=== PATIENT | female | born 1950 | race Caucasian/White ===

== ENCOUNTER 2017-03-14 09:15 | Emergency (ER) | payer OTHER ==
[~2017-03-14] VITALS: Ht 157.5 cm; Wt 85.7 kg
[~2017-03-14 09:15] MED LIST: ACET325T33 PO; IBUP800T25 PO; PSEU30TA38 PO
[2017-03-14 09:23] VITALS: Ht 157.5 cm; Wt 85.7 kg
[2017-03-14] MEDS ORDERED: PRED20TA PO (09:49)
[2017-03-14] MEDS ORDERED: BEN25 PO (09:49)
[2017-03-14] MEDS ORDERED: FAMO-96 PO (09:49)
--- NOTE | 2017-03-14 09:59 | ERD ---
ER Documentation Chief Complaint Chief Complaint started with the body rash itcjing since yesterday still experiencing sympt HPI 66 year old female comes in with a generalized body rash with itching that started yesterday. The patient states that she has not tried any new foods, medications, lotions, creams or detergents, she has been staying at someone's home with several different plants in the home which she is not used to. No pets in the family home. She has not had any chest pain, shortness breath, facial swelling or lip swelling. Patient denies chest pain, shortness of breath , dizziness. ROS All systems reviewed and are negative except as per history of present illness. Medications Home Meds Active Scripts Famotidine* (Pepcid*) 20 Mg Tablet, 20 MG PO BID for 4 Days, TAB Prov:JOAQUIM MIRANDA PA-C 03/14/17 Diphenhydramine Hcl* (Benadryl*) 25 Mg Cap, 25 MG PO Q6, #30 CAP Prov:JOAQUIM MIRANDA PA-C 03/14/17 Prednisone* (Prednisone*) 20 Mg Tab, 40 MG PO DAILY for 4 Days, TAB Prov:JOAQUIM MIRANDA PA-C 03/14/17 Pseudoephedrine Hcl* (Pseudoephedrine Hcl*) 30 Mg Tablet, 30 MG PO Q6 Y for CONGESTION, #30 TAB Prov:FELISA LOZOYA PA-C 03/30/15 Acetaminophen* (Tylenol*) 325 Mg Tablet, 2 TAB PO Q8 Y for PAIN AND OR ELEVATED TEMP, #20 TAB Prov:FELISA LOZOYA PA-C 03/30/15 Ibuprofen* (Motrin*) 800 Mg Tab, 800 MG PO Q6, #30 TAB Prov:FELISA LOZOYA PA-C 03/30/15 Allergies Allergies: Coded Allergies: No Known Allergy (Unverified , 03/30/15) PMhx/Soc History of Surgery: Yes (csect x1, l. breast lumpectomy (+CA treated), tubal ligation) Hx Cardiac Disorders: Yes (htn) Hx Miscellaneous Medical Probl: Yes (breast ca (early stage, treated)) Hx Alcohol Use: No Hx Substance Use: No Hx Tobacco Use: No Smoking Status: Never smoker Physical Exam Vitals Vital Signs Date Time Temp Pulse Resp B/P Pulse Ox O2 Delivery O2 Flow Rate FiO2 03/14/17 09:23 98.5 70 18 133/64 96 Physical Exam General: Well-developed, well-nourished. The patient appears in no acute distress. HEENT: Head is normocephalic, atraumatic. No scleral icterus. Patient's oropharynx is clear, there is no angioedema or facial swelling. Neck: Supple. Nontender. Lungs: Clear to auscultation. Normal air movement. Heart: Regular rate and rhythm. S1 and S2 are normal. No murmurs, gallops, or rubs. Abdomen: Soft, nontender, nondistended. Bowel sounds are normoactive. Extremities: No clubbing or cyanosis. Normal pulses. Moving extremities x 4. No weakness. Neurologic: Alert and oriented 3. No focal deficits. Skin: Scattered hives, no petechiae, no purpura. Results 24 hrs Current Medications Medications (Trade) Dose Ordered Sig/Harley Route PRN Reason Start Time Stop Time Status Last Admin Dose Admin Prednisone (Prednisone) 40 mg ONCE ONCE PO 03/14/17 10:00 03/14/17 10:01 03/14/17 09:52 Diphenhydramine HCl (Benadryl) 25 mg ONCE ONCE PO 03/14/17 10:00 03/14/17 10:01 03/14/17 09:52 Procedures/MDM ED COURSE: Patient was given prednisone 40 mg, Benadryl 25 mg. MEDICAL DECISION MAKIN-year-old female comes in with mild allergic reaction, she has scattered hives , and itching but no angioedema, no signs of respiratory distress the patient appears to be stable. She was given a dose of prednisone, management as per to be discharged home at this time. Patient's allergic symptoms have stabilized while they have been evaluated in the department without evidence of persistent systemic reaction. Patient is healthy and capable of treating and responding to rebound reactions. Patient appropriate for outpatient allergy work up and treatment. Patient's blood pressure was elevated (>120/80) but appears stable without evidence of hypertension emergency or urgency. The patient was counseled about the risks of hypertension and urged to pursue outpatient monitoring and therapy within a week with their primary care physician. Departure Diagnosis: Primary Impression: Allergic reaction Condition: Good Patient Instructions: Allergic Reaction, Other (General) JOAQUIM MIRANDA PA-C Mar 14, 2017 09:59
[2017-03-14] MEDS ORDERED: predniSONE 20 MG TAB PO ONE (10:00)
[2017-03-14] MEDS ORDERED: DIPHENHYDRAMINE 25 MG CAP PO ONE (10:00)
== END 2017-03-14 10:00 | disposition home or self-care (01) ==
LOC: FTE 09:15
DX: L50.0 Allergic urticaria (principal); I10 Essential (primary) hypertension; Z85.3 Personal history of malignant neoplasm of breast
CPT/HCPCS: J7512; Z7502; Z7610; 99283

== ENCOUNTER 2017-03-24 14:30 | Emergency (ER) | payer OTHER ==
[~2017-03-24] VITALS: Ht 157.5 cm; Wt 86.2 kg
[~2017-03-24 14:30] MED LIST changes: +BEN25 PO; +FAMO-96 PO; +PRED20TA PO
[2017-03-24 14:33] VITALS: Ht 157.5 cm; Wt 86.2 kg
[2017-03-24] MEDS ORDERED: KETOROLAC 60 MG INJ IM STA (15:22)
--- NOTE | 2017-03-24 17:47 | RADRPT ---
PROCEDURE: CT Brain without contrast. CLINICAL INDICATION: Headache. TECHNIQUE: A CT of the brain without contrast was performed utilizing axial sections from the skul l base through the vertex. The patient was scanned without intravenous contrast enhancement. Sagitta l and coronal reformatted images were obtained using the data from the axial images. Total exam DLP is 720.23 mGy-cm. CTDIvol is 43.86 mGy. One or more of the following dose reduction techniques we re used: Automated exposure control, adjustment of the mA and/or kV according to patient size, use o f iterative reconstruction technique. DICOM images are available. COMPARISON: None available FINDINGS: There is normal sexton-white matter differentiation. The ventricles and cisterns are normal. There is no intracranial hemorrhage or space-occupying lesion. There is no skull fracture or lytic lesion. IMPRESSION: 1. Normal noncontrast CT scan of the brain. 2. No intracranial hemorrhage. RPTAT: QQ .Galileo Silva MD, MD Date Time Electronically viewed and signed by .Galileo Silva MD, on 03/24/2017 16:52 .R/
[2017-03-24] MEDS ORDERED: ASPI-826 PO (18:06)
[2017-03-24 18:14] VITALS: BP 128/66; PULSE 74; RESP 18; TEMP 98.2
--- NOTE | 2017-03-24 23:48 | ERD ---
ER Documentation Chief Complaint Chief Complaint HAS WILSON STARTED 2 DAYS AGO HPI 66-year-old female complaining of headaches 2 days. Patient stated that the pain is located in the back of her head and sharp. Pain onset upon awake 2 days ago. She has been taking [id number] Tylenol and Advil at home without relief. Last dose was 3 hours ago. Patient denies blurry vision, photophobia, nausea, vomiting, dizziness, or fever. Patient has history of breast cancer and ovarian cancer, her last chemo for ovarian cancer was 1 year ago. ROS All systems reviewed and are negative except as per history of present illness. Medications Home Meds Active Scripts Aspirin/Acetaminophen/Caffeine (Excedrin Extra Strength Caplet) 1 Each Tablet, 1 EACH PO Q6 Y for HEADACHE, #20 TAB Prov:ASHLEY SOLITARIO JACKSPOOLER 03/24/17 PMhx/Soc History of Surgery: No Anesthesia Reaction: No Hx Neurological Disorder: No Hx Respiratory Disorders: No Hx Cardiac Disorders: Yes (CHOLESETEROL, HYPERTENSION ) Hx Psychiatric Problems: No Hx Miscellaneous Medical Probl: Yes (BREAST AND UTERUS CANCER ) Hx Alcohol Use: No Hx Substance Use: No Hx Tobacco Use: No Physical Exam Vitals Vital Signs Date Time Temp Pulse Resp B/P Pulse Ox O2 Delivery O2 Flow Rate FiO2 03/24/17 18:14 98.2 74 18 128/66 98 Room Air 03/24/17 14:33 98.0 75 18 125/60 98 Physical Exam General: Well-developed, well-nourished, conscious and coherent, in no distress Skin: Warm and dry without rash, good texture and turgor Head: Normocephalic without evidence of trauma Eyes: Sclera and conjunctivae normal; pupils equal, round, and reactive to light; extraocular movements are intact Neck: Supple without meningismus or adenopathy. Carotids are equal. Trachea midline. No bruits or JVD. Bilateral upper trapezius muscle tightness and tenderness. Chest: Normal AP diameter. Good expansion without retractions. Nontender. Lungs are clear to auscultate bilaterally with good tidal volume Heart: Regular rate and rhythm. No murmur, rub, or gallops heard Extremities: Full range of motion. Good strength bilaterally. No clubbing, cyanosis, or edema. Peripheral pulses are intact. Sensation intact Neuro: Alert and oriented 4; GCS 15. Cranial nerves II - XII intact. Motor sensory exam nonfocal. Moves all extremities. Deep tendon reflexes 2+ in all extremities. Speech clear. No pronator drift. Gait steady. Results 24 hrs Current Medications Medications (Trade) Dose Ordered Sig/Harley Route PRN Reason Start Time Stop Time Status Last Admin Dose Admin Ketorolac Tromethamine (Toradol) 60 mg ONCE STAT IM 03/24/17 15:22 03/24/17 15:23 DC 03/24/17 15:32 PROCEDURE: CT Brain without contrast. CLINICAL INDICATION: Headache. TECHNIQUE: A CT of the brain without contrast was performed utilizing axial sections from the skull base through the vertex. The patient was scanned without intravenous contrast enhancement. Sagittal and coronal reformatted images were obtained using the data from the axial images. Total exam DLP is 720.23 mGy-cm. CTDIvol is 43.86 mGy. One or more of the following dose reduction techniques were used: Automated exposure control, adjustment of the mA and/or kV according to patient size, use of iterative reconstruction technique. DICOM images are available. COMPARISON: None available FINDINGS: There is normal sexton-white matter differentiation. The ventricles and cisterns are normal. There is no intracranial hemorrhage or space-occupying lesion. There is no skull fracture or lytic lesion. IMPRESSION: 1. Normal noncontrast CT scan of the brain. 2. No intracranial hemorrhage. RPTAT: QQ .Galileo Silva MD, Date Time Electronically viewed and signed by .Galileo Silva MD, on 03/24/2017 16:52 .R/ CC: ASHLEY SOLITARIO JACKSPOOLER Procedures/MDM Well-appearing 66-year-old female presented ED with headache 2 days. Differentials include but not limited to migraine, cluster headache, tension headache, sinus or dental infection, TMJ syndrome, pseudotumor cerebri, meningitis, encephalitis, giant cell arteritis, glaucoma, subarachnoid hemorrhage, subdural or epidural hematoma, intracranial bleeding or tumor. Because the patient is advanced age, and her recent cancer history, CT head without IV contrast was obtained. CT head negative for intracranial processes. Toradol given to the patient in the ED for pain, patient reports relief of headache after Toradol. Likely patient's headache is tension type. Patient appears well, stable for discharge and outpatient management. Medical decision making shared with patient and family. Education provided to patient and family. Patient and family expressed understanding of the plan. Medications on discharge: Excedrin. Follow-up: Primary care provider in 2-3 days or return to ED if worse. Disclaimer: Inadvertent spelling and grammatical errors are likely due to EHR/ dictation software use and do not reflect on the overall quality of patient care. Also, please note that the electronic time recorded on this note does not necessarily reflect the actual time of the patient encounter. Departure Diagnosis: Primary Impression: Headache Condition: Stable Patient Instructions: Self-Care for Headaches Referrals: DOCTOR,NOT ON STAFF (PCP) [facility] Usted se wilson hecho un examen mdico de control que le indica que no est en ellen condicin que requiera tratamiento urgente en el Departamento de Emergencia. Un estudio ms profundo y el tratamiento de arvizu condicin pueden esperar sin ningn riesgo hasta que usted sea atendida/o en el consultorio de arvizu mdico o ellen cl heaven. Es responsabilidad suya arreglar ellen chayo para el seguimiento del west. MANEJO DE CONDICIONES NO URGENTES EN EL FUTURO 1) Si usted tiene un mdico de atencin primaria: Usted debera llamar a arvizu mdico de atencin primaria antes de venir al departamento de emergencia. Despus de las horas de consultorio, arvizu doctor o arvizu asociado/a est disponible por telfono. El mdico o enfermero de poly en el servicio telefnico puede asesorarle por franky medio para atender el problema, o west contrario se puede programar ellen chayo. 2) Si usted no tiene un mdico de atencin primaria: Llame al mdico o clnica de referencia que aparece abajo jeff las horas de consultorio para hacer ellen chayo para que le vean. CLINICAS: [facility] [phone] [facility] [phone] [facility] [phone] [place] [address] [phone] [place] [address] [phone] [facility]. [phone] [address] Additional Instructions: Llame al doctor MAANA y yana ellen CHAYO PARA DENTRO DE 2-3 BECKETT.Dgale a la secretaria que nosotros le instruimos hacer esta chayo.Avise o llame si arvizu condicin se empeora antes de la chayo. Regresa aqui si peor o no mejor. ASHLEY SOLITARIO. PREM Mar 24, 2017 23:48
== END 2017-03-24 18:14 | disposition home or self-care (01) ==
LOC: MERGE 14:30 → FTE 14:30
DX: R51 Headache (principal)
CPT/HCPCS: 70450; 96372; J1885; Z7502

== ENCOUNTER 2017-06-11 10:54 | Emergency (ER) | END 2017-06-11 13:37 | disposition home or self-care (01) ==

== ENCOUNTER 2018-11-14 13:44 | Emergency (ER) | payer MEDICARE, OTHER ==
[~2018-11-14] VITALS: Ht 157.5 cm; Wt 85.7 kg
[~2018-11-14 13:44] MED LIST changes: +ASPI-826 PO; +AZIT250T PO; +CEPH-443 PO; +D-ME473S2 PO; -IBUP800T25 PO; +IBUP800T48 PO
[2018-11-14 13:48] VITALS: BP 137/65; PULSE 66; RESP 17; Ht 157.5 cm; Wt 85.7 kg
--- NOTE | 2018-11-14 14:25 | ERD ---
ER Documentation Chief Complaint Chief Complaint PAIN WITH URINATION, ONSET TODAY, NO HEMATURIA, NO N/V, NO FEVER HPI 68-year-old female who presents to the emergency room complaining of ap proximately less than 12 hours of dysuria urgency and frequency. The patient describes a remote history of kidney stones but none presently. She denies any flank pain or colicky pain or fevers or chills. Translation services were utilized during this patient's encounter Language: Ethiopian Source: In person ROS All systems reviewed and are negative except as per history of present illness. Medications Home Meds Active Scripts Cephalexin* (Keflex*) 500 Mg Capsule, 500 MG PO BID for 7 Days, CAP Prov:INDY STEELE MD 11/14/18 Dextromethorphan Hb-Promethazine Hcl* (Promethazine DM* Syrup) 473 Ml Syrup, 10 ML PO Q6 PRN for COUGH, #120 ML Prov:ROSA PAUL MD 06/11/17 Azithromycin* (Zithromax*) 250 Mg Tablet, 250 MG PO .ZPACK DIRECTED, #6 TAB TAKE 500 MG (2 TABS) THE FIRST DAY THEN 250 MG (1 TAB) DAYS 2-5 Prov:ROSA PAUL MD 06/11/17 Aspirin/Acetaminophen/Caffeine (Excedrin Extra Strength Caplet) 1 Each Tablet, 1 EACH PO Q6 PRN for HEADACHE, #20 TAB Prov:ASHLEY SOLITARIO NP 03/24/17 Famotidine* (Pepcid*) 20 Mg Tablet, 20 MG PO BID for 4 Days, TAB Prov:JOAQUIM MIRANDA PA-C 03/14/17 Diphenhydramine Hcl* (Benadryl*) 25 Mg Cap, 25 MG PO Q6, #30 CAP Prov:JOAQUIM MIRANDA PA-C 03/14/17 Prednisone* (Prednisone*) 20 Mg Tab, 40 MG PO DAILY for 4 Days, TAB Prov:JOAQUIM MIRANDA PA-C 03/14/17 Pseudoephedrine Hcl* (Pseudoephedrine Hcl*) 30 Mg Tablet, 30 MG PO Q6 PRN for CONGESTION, #30 TAB Prov:FELIAS LOZOYA PA-C 03/30/15 Acetaminophen* (Tylenol*) 325 Mg Tablet, 2 TAB PO Q8 PRN for PAIN AND OR ELEVATED TEMP, #20 TAB Prov:FELISA LOZOYA PA-C 03/30/15 Ibuprofen* (Motrin*) 800 Mg Tab, 800 MG PO Q6, #30 TAB Prov:FELISA LOZOYA PA-C 03/30/15 Allergies Allergies: Coded Allergies: No Known Allergy (Unverified , 06/11/17) PMhx/Soc History of Surgery: No Anesthesia Reaction: No Hx Neurological Disorder: No Hx Respiratory Disorders: No Hx Cardiac Disorders: Yes (CHOLESETEROL, HYPERTENSION ) Hx Psychiatric Problems: No Hx Miscellaneous Medical Probl: Yes (BREAST AND UTERUS CANCER ) Hx Alcohol Use: No Hx Substance Use: No Hx Tobacco Use: No Smoking Status: Never smoker FmHx Family History: No diabetes Physical Exam Vitals Vital Signs Date Temp Pulse Resp B/P (MAP) Pulse Ox O2 O2 Flow FiO2 Time Delivery Rate 11/14/18 98.8 66 17 137/65 98 13:48 (89) Physical Exam General: Well developed, well nourished, no acute distress Head: Normocephalic, atraumatic. Eyes: EOM intact ENT: Moist mucous membranes Neck: Full ROM Respiratory: No respiratory distress Cardiovascular: Well perfused distally Abdominal: Nondistended nontender : Deferred MSK: No edema, no unilateral swelling, 5/5 strength Neurologic: Alert and oriented, moving all extremities, normal speech, steady gait Skin: No rash Psych: Normal mood Procedures/MDM Clinical exam is consistent with uncomplicated urinary tract infection. No evidence of pyelonephritis. No evidence of concurrent ureteral stone. Empiric therapy would be reasonable. No indication to check urinalysis or urine dip. The patient does not have an identifiable emergent medical condition that warrants inpatient hospitalization at this time. The patient is deemed safe for discharge with outpatient follow-up. We discussed follow up with the patient's primary care doctor within 24 to 48 hours as needed. We also discussed return to the emergency room for worsening symptoms or worsening condition. Outpatient referral: None required Discharge Medications: Keflex Departure Diagnosis: Primary Impression: UTI (urinary tract infection) Urinary tract infection type: acute cystitis Hematuria presence: without hematuria Qualified Codes: N30.00 - Acute cystitis without hematuria Condition: Stable Patient Instructions: Understanding Urinary Tract Infections (UTIs) Referrals: [facility]) Usted se villanueva hecho un examen mdico de control que le indica que no est en ellen condicin que requiera tratamiento urgente en el Departamento de Emergencia. Un estudio ms profundo y el tratamiento de arvizu condicin pueden esperar sin ningn riesgo hasta que usted sea atendida/o en el consultorio de arvizu mdico o ellen clnica. Es responsabilidad suya arreglar ellen chayo para el seguimiento del west. MANEJO DE CONDICIONES NO URGENTES EN EL FUTURO 1) Si usted tiene un mdico de atencin primaria: Usted debera llamar a arvizu mdico de atencin primaria antes de venir al departamento de emergencia. Despus de las horas de consultorio, arvizu doctor o arvizu asociado/a est disponible por telfono. El mdico o enfermero de poly en el servicio telefnico puede asesorarle por franky medio para atender el problema, o west contrario se puede programar ellen chayo. 2) Si usted no tiene un mdico de atencin primaria: Llame al mdico o clnica de referencia que aparece abajo jeff las horas de consultorio para hacer ellen chayo para que le vean. CLINICAS: [facility] [phone] [address] [facility] [phone] [address] [facility] [phone] [address] [facility]. [facility] [phone] [address] [place] [phone] [facility]. [phone] [address] [facility] [address] [facility] () Usted se villanueva hecho un examen mdico de control que le indica que no est en ellen condicin que requiera tratamiento urgente en el Departamento de Emergencia. Un estudio ms profundo y el tratamiento de arvizu condicin pueden esperar sin ningn riesgo hasta que usted sea atendida/o en el consultorio de arvizu mdico o ellen clnica. Es responsabilidad suya arreglar ellen chayo para el seguimiento del west. MANEJO DE CONDICIONES NO URGENTES EN EL FUTURO 1) Si usted tiene un mdico de atencin primaria: Usted debera llamar a arvizu mdico de atencin primaria antes de venir al departamento de emergencia. Despus de las horas de consultorio, arvizu doctor o arvizu asociado/a est disponible por telfono. El mdico o enfermero de poly en el servicio telefnico puede asesorarle por franky medio para atender el problema, o west contrario se puede programar ellen chayo. 2) Si usted no tiene un mdico de atencin primaria: Llame al mdico o condado institucions de referencia que aparece abajo ejff las horas de consultorio para hacer ellen chayo para que le vean. SI USTED NO PUEDE PAGAR PARA OLGA UN MEDICO puede ir a: [facility] [phone] [place] [address] [facility] [address] [place] [address] [facility] [address] [place] [address] PARA [facility] [address] [place], [place] [id number] Additional Instructions: Llame al doctor nombrado abajo (Referral Sources) MAANA y yana ellen CHAYO PARA DENTRO DE ELLEN SEMANA. Dgale a la secretaria que nosotros le instruimos hacer esta chayo.Avise o llame si arvizu condicin se empeora antes de la chayo. INDY STEELE MD Nov 14, 2018 14:25
== END 2018-11-14 14:35 | disposition home or self-care (01) ==
LOC: FTE 13:44
DX: N30.00 Acute cystitis without hematuria (principal); I10 Essential (primary) hypertension; Z85.3 Personal history of malignant neoplasm of breast; Z85.41 Personal history of malignant neoplasm of cervix uteri
CPT/HCPCS: 99283